=== PATIENT | female | born 1955 | race Two or more races ===

== ENCOUNTER 2025-01-21 23:39 | Inpatient (IN) | payer MEDICARE, MEDICAID, SELFPAY ==
[2025-01-21 23:43] VITALS: PULSE 128; RESP 20; O2SAT 95; BMI 25.2
[2025-01-21 23:48] VITALS: BP 111/63; PULSE 125; RESP 20; TEMP 40.3; O2SAT 95
--- NOTE | 2025-01-21 23:50 | PD.EDAMS ---
Altered Mental Status RME/HPI General Chief Complaint: Altered Mental Status Stated Complaint: AMS Time Seen by Provider: 01/21/25 23:56 Arrival date/time: 01/21/25 23:39 RME / HPI RME / HPI narrative: See MDM for HPI documentation. Related Data Home Medications ?Medication ?Instructions ?Recorded ?Confirmed albuterol sulfate 90 mcg/actuation 2 puff inhalation Q6HR PRN 04/06/17 01/22/25 aerosol inhaler (Proventil HFA) SHORTNESS OF BREATH #0 inhalations ferrous sulfate 325 mg (65 mg 325 mg PO TID ##0 04/06/17 01/22/25 iron) tablet hydroxyzine HCl 25 mg tablet 25 mg PO Q8HR PRN ANXIETY ##0 04/06/17 01/22/25 lisinopril 10 mg tablet 20 mg PO QDAY #0 tabs 04/06/17 01/22/25 chlorthalidone 25 mg tablet 25 mg PO QDAY #0 tabs 06/24/17 01/22/25 omeprazole 40 mg capsule,delayed 40 mg PO QDAY ##0 06/24/17 01/22/25 release cholecalciferol (vitamin D3) 50 50 mcg PO QDAY 01/22/25 01/22/25 mcg (2,000 unit) tablet Previous Rx's ?Medication ?Instructions ?Recorded albuterol sulfate 90 mcg/actuation 2 puff inhalation Q6HR PRN cough 04/06/17 aerosol inhaler (ProAir HFA) #1 inh Allergies Allergy/AdvReac Type Severity Reaction Status Date / Time No Known Allergies Allergy Unverified 01/23/25 11:45 Review of Systems Review of Systems ROS Unobtainable: unobtainable due to mental status Past Medical History Past Medical History CARDIAC: Negative Congestive Heart Failure RESPIRATORY: Negative Chronic Obstructive Pulmonary Disease (COPD) GENITOURINARY: Negative Renal Disease ENDOCRINE: Negative Diabetes Mellitus Type 1 or Diabetes Mellitus Type 2 OTHER HISTORY: Positive Blood Transfusions Social History SMOKING STATUS: Never smoker ED Exam Narrative Physical exam: See MDM for physical exam documentation. Course Course Course Narrative: 2350: Sepsis alert initiated. Orders made at this time are congruent with ED Adult Sepsis Order List. Re-evaluation is to be completed. CXR is ordered for determining the etiology of AMS. 0009: NS IVF started. 0201: Sepsis reassessment performed consisting of lab review, vitals, physical exam including auscultation of heart, lungs, and visual evaluation of capillary refills, mucosal membranes and extremities. Patient met SIRS criteria however lactic and pro carmen are elevated. Reassessment complete, patient is septic. Quality Measures Possible source: genitourinary Blood cultures ordered: yes Antibiotic ordered: Yes Pertinent labs: 01/21/25 01/22/25 23:59 03:56 Lactic Acid 3.7 H mMol/L 0.7 mMol/L (0.4-2.0) (0.4-2.0) Procalcitonin 9.53 H ng/ml (0.0-0.49) sepsis Orders Category Date Time Status Bedside COVID-19 Antigen Test NOW Care 01/21/25 23:53 Active Bedside Influenza A&B Antigen Test NOW Care 01/21/25 23:53 Completed COVID-19 Screening Questionnaire NOW Care 01/22/25 04:36 Active Decision to Admit X1 Care 01/22/25 04:36 Completed EKG (ED ONLY) *Do not use* NOW Care 01/21/25 23:54 Completed Barnes [Urinary Catheter] QS Care 01/22/25 00:01 Active Saline [Insert IV] NOW Care 01/21/25 23:53 Active Straight [In and Out Catheter] X1 Care 01/21/25 23:[address] chest wo con Stat Exams 01/22/25 02:[address] head/brain wo con Stat Exams 01/22/25 02:58 Completed EKG (ED Only) Stat Exams 01/21/25 23:54 Draft XR chest 1V portable Stat Exams 01/21/25 23:54 Completed BNP [B-Type Natriuretic Peptide] Stat Lab 01/21/25 23:59 Completed Bilirubin,Direct Stat Lab 01/21/25 23:59 Completed Blood Culture (Lab) Stat Lab 01/21/25 23:59 Results CBC Stat Lab 01/21/25 23:59 Completed CMP [Comprehensive Metabolic Panel] Stat Lab 01/21/25 23:59 Completed CRP [C-Reactive Protein] Stat Lab 01/21/25 23:59 Completed ESR [Sed Rate (ESR)] Stat Lab 01/21/25 23:59 Completed Free T4 (Free Thyroxine) Stat Lab 01/21/25 23:59 Completed Lactate (Lactic Acid) Stat Lab 01/21/25 23:59 Completed Lactic Acid, 3 HR Stat Lab 01/22/25 03:56 Completed Lipase Stat Lab 01/21/25 23:59 Completed Magnesium Stat Lab 01/21/25 23:59 Completed Procalcitonin Stat Lab 01/21/25 23:59 Completed RSV [Respiratory Syncytial Virus Ag] Stat Lab 01/21/25 23:59 Completed TSH [Thyroid Stimulating Hormone] Stat Lab 01/21/25 23:59 Completed Troponin I Stat Lab 01/21/25 23:59 Completed Troponin I Stat Lab 01/22/25 01:46 Completed UA, C/S IF [Urinalysis, C/S if Indicated] Stat Lab 01/21/25 23:57 Completed Urine Culture Stat Lab 01/21/25 23:57 Results Acetaminophen Ivpb [Ofirmev Inj] Med 01/21/25 23:53 Discontinued 1,000 mg in 100 ml IV X1 Aspirin Chew Med 01/22/25 01:26 Discontinued 324 mg PO X1 ONE Ketorolac Inj [Toradol Inj] Med 01/21/25 23:53 Discontinued 30 mg IVP X1 ONE Magnesium Sulfate 4 GM Ivpb [Magnesium Sulfate Ivpb] Med 01/22/25 01:37 Discontinued 4 gm in 50 ml IV X1 Metoprolol Tartrate [Lopressor] Med 01/22/25 01:26 Discontinued 12.5 mg PO X1 ONE Morphine Inj Med 01/21/25 23:53 Discontinued 2 mg IVP X1 ONE Sodium Chloride 0.9% 1000 ml [Ns] 1,000 ml Med 01/21/25 23:53 Discontinued IV 999 mls/hr Sodium Chloride 0.9% 1000 ml [Ns] 1,000 ml Med 01/21/25 23:53 Discontinued IV 999 mls/hr cefTRIAXone/D5w 1gm IV premix [Rocephin/D5w 1gm IV Med 01/21/25 23:53 Discontinued premix] 1 gm in 50 ml IV X1 Vital Signs Vital signs: Vital Signs Temperature 104.6 F H 01/21/25 23:48 Pulse Rate 125 H 01/21/25 23:48 Respiratory Rate 20 01/21/25 23:48 Blood Pressure 111/63 01/21/25 23:48 Pulse Oximetry (%) 95 01/21/25 23:48 Oxygen Delivery Method Room Air 01/21/25 23:48 Altered Mental Status MDM Narrative MDM Narrative:: This section includes all my notes and documentations, including HPI, PE, and ED course. Jim Jackson MD HPI: 70yo female BIBA from home here with AMS. Patient has been altered for a couple of hours. Family on scene described the patient being more confused and lethargic then normal. Patient is awake, but confused, and is unable to provide much history. ROS: Unobtainable due to to current clinical condition. Physical Exam: General: Alert. Eyes: Conjunctivae and lids clear. PERRL. EOMI. ENT: No nasal congestion. Neck: Supple. Heart: Sinus tachycardia noted. Lungs: No respiratory distress. Good air movement. No severe rhonchi, wheezing, rales. Abdomen: Soft and nontender. Normal bowel sounds. No distension. No rebound or guarding. Back: No CVA tenderness. Skin: Warm and dry. Neuro: Alert. Cranial nerves II to XII grossly normal. No peripheral motor deficits. I reviewed EMS notes. I reviewed all diagnostic test results. My interpretation of the EKG is sinus tachycardia with nonspecific ST-T changes. My interpretation of the chest x-ray is NAD. My review of the CT head report is NAD. My review of the chest CT report is pneumonia. Blood tests remarkable for Lactic Acid 3.7, Mg 1.0, Troponin 0.278, CRP 8.8, Procalcitonin 9.53. UA remarkable for positive leukocyte esterse, 106 RBCs, 863 WBCs, and bacteria. COVID/Influenza/RSV negative. At this point, diagnoses include: Sepsis UTI NSTEMI CELESTE AMS Pneumonia Hypomagnesemia Treatment here included Morphine, Metoprolol, Toradol, IV fluid, Rocephin, Tylenol, Aspirin, Magnesium. I discussed the case with our hospitalist. About the presentation and exam and diagnostics and treatments here. And need of further care in the hospital. Will accept the patient. Jim Jackson MD Patient data External records reviewed:: [facility] previous records (Per chart review, patient has no previous ED visits or admissions to this facility.) and EMS form Clinical information provided by:: EMS Social determinants that could affect healthcare access:: none Patient has the following chronic illnesses:: HTN, DM How is presenting disease/condition affected by chronic disease/condition?: uneffected by Evaluation data The following diagnostics were reviewed and interpreted by me:: lab results, radiology exam(s) and EKG tracing(s) (My interpretation of the EKG is: Sinus tachycardia (120 bpm) with nonspecific ST-T changes. Jim Jackson MD) Lab and/or radiology exams considered but not ordered:: none Interpretation Summary: I reviewed all diagnostic test results. My interpretation of the EKG is sinus tachycardia with nonspecific ST-T changes. My interpretation of the chest x-ray is NAD. My review of the CT head report is NAD. My review of the chest CT report is pneumonia. Blood tests remarkable for Lactic Acid 3.7, Mg 1.0, Troponin 0.278, CRP 8.8, Procalcitonin 9.53. UA remarkable for positive leukocyte esterse, 106 RBCs, 863 WBCs, and bacteria. COVID/Influenza/RSV negative. Medications / Prescriptions Medications or Prescriptions considered but not ordered:: none Medication administrations:: Medication Administration History Acetaminophen (Acetaminophen 325 Mg Tablet) 650 mg PO Q6H PRN PRN Reason: Fever >100.4 or pain 1-3 Stop: 02/21/25 04:49 Hydrocodone Bitart/Acetaminophen (Hydrocodone/Apap 5/325 Tablet) 1 tab PO Q4HR PRN PRN Reason: PAIN SCALE 4-10(Mod-Sev Stop: 01/27/25 04:49 Last Admin: 01/24/25 03:53 Dose: 1 tab Documented By: Admin: 01/23/25 20:28 Dose: 1 tab Documented By: Admin: 01/23/25 07:56 Dose: 1 tab Documented By: Admin: 01/22/25 21:30 Dose: 1 tab Documented By: Admin: 01/22/25 11:31 Dose: 1 tab Documented By: KAJAL Albuterol/Ipratropium (Albuterol/Ipratropium (Duoneb) Rt Ximena 3 Ml Nebu) 3 ml INH Q2HR PRN PRN Reason: SHORTNESS OF BREATH OR WHEEZE Stop: 02/22/25 11:42 Budesonide (Budesonide Rt 0.25 Mg/2 Ml Nebu) 0.25 mg INH BIDRT [place]AR[place] Stop: 02/22/25 11:44 Last Admin: 01/23/25 19:27 Dose: 0.25 mg Documented By: CHERELLE Docusate Sodium (Docusate Sod 100 Mg Capsule) 100 mg PO QDAY PRN; Protocol PRN Reason: CONSTIPATION Stop: 02/21/25 04:49 Ceftriaxone Sodium 2 gm/ (Sodium Chloride) 50 mls @ 100 mls/hr IV QDAY@2100 [place] Stop: 01/29/25 20:59 Last Admin: 01/23/25 20:28 Dose: 100 mls/hr Documented By: Infusion: 01/22/25 22:00 Dose: Infused Documented By: Admin: 01/22/25 21:30 Dose: 100 mls/hr Documented By: LUZ Ondansetron HCl (Ondansetron Inj 2 Mg/Ml Inj 2 Ml) 4 mg IVP Q6H PRN; Protocol PRN Reason: NAUSEA OR VOMITING Stop: 02/21/25 04:49 Pantoprazole Sodium (Pantoprazole 40 Mg Tablet) 40 mg PO QDAY [facility] Stop: 02/21/25 08:59 Last Admin: 01/23/25 07:57 Dose: 40 mg Documented By: Admin: 01/22/25 09:04 Dose: 40 mg Documented By: KAJAL Sennosides (Senna Tablet) 1 tab PO QDAY PRN; Protocol PRN Reason: constipation Stop: 02/21/25 04:49 Discontinued Medications Aspirin (Aspirin 81 Mg Chew) 324 mg PO X1 ONE Stop: 01/22/25 01:27 Last Admin: 01/22/25 01:40 Dose: 324 mg Documented By: RANDY Benzonatate (Benzonatate 100 Mg Capsule) 100 mg PO X1 ONE; Protocol Stop: 01/23/25 23:47 Last Admin: 01/23/25 23:51 Dose: 100 mg Documented By: SHAWNA Heparin Sodium (Porcine) (Heparin Sod Inj 5000 Unit/Ml Vial) 5,000 unit SC Q12HR [facility] Stop: 02/05/25 08:59 Last Admin: 01/22/25 09:02 Dose: Not Given Documented By: KAJAL Non-Admin Reason: Held per Dr. Acevedo Acetaminophen (Ofirmev Inj) 1,000 mg in 100 mls @ 250 mls/hr IV X1 ONE Stop: 01/22/25 00:16 Last Infusion: 01/22/25 00:42 Dose: Infused Documented By: Admin: 01/22/25 00:06 Dose: 250 mls/hr Documented By: RANDY Sodium Chloride (Ns) 1,000 mls @ 999 mls/hr IV .Q1H1M ONE Stop: 01/22/25 00:53 Last Infusion: 01/22/25 01:31 Dose: Infused Documented By: Admin: 01/22/25 00:10 Dose: 999 mls/hr Documented By: RANDY Ceftriaxone Sodium/Dextrose (Rocephin/D5w 1gm Iv Premix) 1 gm in 50 mls @ 100 mls/hr IV X1 ONE Stop: 01/22/25 00:22 Last Infusion: 01/22/25 00:40 Dose: Infused Documented By: Admin: 01/22/25 00:06 Dose: 100 mls/hr Documented By: RANDY Sodium Chloride (Ns) 1,000 mls @ 999 mls/hr IV .Q1H1M ONE Stop: 01/22/25 00:53 Last Infusion: 01/22/25 01:31 Dose: Infused Documented By: Admin: 01/22/25 00:09 Dose: 999 mls/hr Documented By: RANDY Magnesium Sulfate (Magnesium Sulfate Ivpb) 4 gm in 50 mls @ 12.5 mls/hr IV X1 ONE Stop: 01/22/25 05:36 Last Infusion: 01/22/25 06:05 Dose: Infused Documented By: Admin: 01/22/25 02:29 Dose: 12.5 mls/hr Documented By: RANDY Sodium Chloride (Ns) 1,000 mls @ 75 mls/hr IV .[id number] [place] Stop: 01/23/25 07:39 Last Admin: 01/22/25 21:30 Dose: 75 mls/hr Documented By: Infusion: 01/22/25 19:29 Dose: Infused Documented By: Admin: 01/22/25 06:09 Dose: 75 mls/hr Documented By: SHAWNA Ketorolac Tromethamine (Ketorolac Inj 30 Mg/Ml Vial) 30 mg IVP X1 ONE Stop: 01/21/25 23:54 Last Admin: 01/22/25 00:06 Dose: 30 mg Documented By: RANDY Metoprolol Tartrate (Metoprolol Tartrate 25 Mg Tablet) 12.5 mg PO X1 ONE Stop: 01/22/25 01:27 Last Admin: 01/22/25 01:37 Dose: 12.5 mg Documented By: CB Morphine Sulfate (Morphine Sulf Inj 10 Mg/Ml Vial) 2 mg IVP X1 ONE Stop: 01/21/25 23:54 Last Admin: 01/22/25 00:07 Dose: 2 mg Documented By: RANDY Potassium Chloride (Potassium Chloride 10% 20 Meq/15 Ml Udc) 40 meq PO X1 ONE Stop: 01/23/25 08:31 Last Admin: 01/23/25 11:04 Dose: 40 meq Documented By: FAVIOLA Treatment from me here included morphine, Metoprolol, Toradol, IV fluid, Rocephin, Tylenol, Aspirin, Magnesium. Consultations Consultation(s) initiated? (list below): Yes Consultation #1 (Physician, Specialty, Details): I discussed the case with our hospitalist. About the presentation and exam and diagnostics and treatments here. And need of further care in the hospital. Will accept the patient. Time: 02:26 Diagnosis Differential diagnosis altered mental status: alcoholic intoxication, altered mental status, delirium, dementia, hypoglycemia, hyponatremia, subarachnoid hemorrhage and sepsis Most likely diagnosis given after review of the tests above:: At this point, diagnoses include: Sepsis UTI NSTEMI CELESTE AMS Pneumonia Hypomagnesemia Admission Indicated Admission indicated?: indicated Explain why admission is indicated or not indicated:: Sepsis Admission Request Was there a request for admission?: Yes Admission Attestation Admission request attestation: Discussed case with Hospitalist service regarding admission. Discussed patients ED course, exam findings, labs, and radiology results. The Hospitalist [agrees] to accept the patient for admission. Disposition Plan Disposition Plan: Admit Critical Care Time Critical Care Time Critical Care Time: Yes Total Critical Care Time (min.): 40 Attestation: Due to a high probability of clinically significant, life threatening deterioration, the patient required my highest level of preparedness to intervene emergently and I personally spent this critical care time directly and personally managing the patient. This critical care time included obtaining a history; examining the patient; ordering and review of studies; arranging urgent treatment with development of a management plan; evaluation of patient's response to treatment; frequent reassessment; and discussions with family and other providers. It was exclusive of separately billable procedures and treating other patients and teaching time. Jim Jackson MD Discharge Plan Plan Patient Disposition: Admit Acute Care w/in Hospital Problem List Clinical Impression: Sepsis, AMS (altered mental status), UTI (urinary tract infection), Non-ST elevation [place] (NSTEMI), CELESTE (acute kidney injury), Pneumonia, Hypomagnesemia
--- NOTE | 2025-01-21 23:54 | XR_ITS ---
Examination: AP chest single view Technique one AP portable semiupright chest single view Date and time: January 22, 2025 0010 hours INDICATIONS: Coughing and fever today. FINDINGS: Normal heart size. Mild elevation left hemidiaphragm. No pneumonia or pulmonary edema Prominent osteopenia IMPRESSION: No active disease
--- NOTE | 2025-01-21 23:54 | EKG_ITS ---
[facility] Test Date: 2025-01-21 Pat Name: DEMETRI ARROYO Department: Room: - Gender: Female Terminal Clerk: : 1955 Requested By: Jim Costello Order Number: [id number] Reading MD: Jim Costello Measurements Intervals Elim Rate: 120 P: -23 [place]: 146 QRS: -52 QRSD: 92 T: 57 QT: 382 QTc: 542 Interpretive Statements SINUS TACHYCARDIA LOW QRS VOLTAGE IN PRECORDIAL LEADS [QRS DEFLECTION < 1.0 mV IN CHEST LEADS] LEFT ANTERIOR FASCICULAR BLOCK [QRS AXIS <= -45, QR IN I, RS IN II] No previous ECG available for comparison /store/S0/[id number]/ecg/[id number].pdf
[2025-01-22] VITALS (14 sets, daily range): BP systolic 92–127; BP diastolic 52–71; PULSE 64–108; RESP 16–19; TEMP 36.2–40.3; O2SAT 92–96; BMI 27.1; BMI 11.0
[2025-01-22 00:05] LABS: Collection Type, Urine Clean Catch; Squamous Epithelial Cell,Urine 0 /hpf (0-5)
[2025-01-22] MEDS: KETOROLAC INJ 30 MG/ML VIAL IVP (00:06)
[2025-01-22] MEDS: cefTRIAXone/D5w 1gm IV premix 1 GM/50 ML BAG IV (00:06)
[2025-01-22] MEDS: ACETAMINOPHEN IVPB 1,000 MG/100 ML VIAL 250 MG IV (00:06)
[2025-01-22] MEDS: MORPHINE SULF INJ 10 MG/ML VIAL 2 MG IVP (00:07)
[2025-01-22] MEDS: SODIUM CHLORIDE 0.9% 1000 ML 1,000 ML 999 ML IV ×2 (00:09→00:10)
[2025-01-22 00:17] LABS: Bacteria,Urine Rare; Bilirubin,Urine Negative (Negative); Blood,Urine 3+ (Negative); Clarity,Urine Turbid (Clear/Hazy); Color,Urine Yellow (Lt Yel-Yel); Culture Indicated,Urine Yes; Glucose, Urine Negative (Negative); Hyaline Casts,Urine < 1 /hpf (0-1); Ketones,Urine Negative (Negative); Leukocyte Esterase,Urine Positive (Negative); Nitrite,Urine Negative (Negative); PH,Urine 6.0 (5.0-7.0); Protein,Urine 2+ (Neg - Trace); RBC,Urine 106 /hpf (0-3); Specific Gravity,Urine 1.023 (1.001-1.035); Urobilinogen,Urine Negative mg/dL (0.0-1.0); WBC,Urine 863 /hpf (0-5)
[2025-01-22 00:27] LABS: Lactate (Lactic Acid) 3.7 mMol/L (0.4-2.0)
[2025-01-22 00:30] LABS: Basophils # (Auto) 0.0 Thou/mm3 (0.0-0.2); Basophils % (Auto) 0 % (0-2.5); Eosinophils # (Auto) 0.0 Thou/mm3 (0.0-0.5); Eosinophils % (Auto) 0 % (0-10); Hematocrit 27.7 % (36.0-46.0); Hemoglobin 8.4 g/dL (12.0-16.0); Immature Granulocytes Auto 0.02 Thou/mm3 (0.00-0.00); Lymphocytes # (Auto) 0.4 Thou/mm3 (1.0-4.8); Lymphocytes % (Auto) 6 % (10-50); Mean Corpuscular HGB Conc 30.3 g/dl (31.0-37.0); Mean Corpuscular Hemoglobin 23.0 pg (25.0-35.0); Mean Corpuscular Volume 76 fL (80-100); Monocytes # (Auto) 0.2 Thou/mm3 (0.0-0.8); Monocytes % (Auto) 3 % (0-12); Neutrophils # (Auto) 5.5 Thou/mm3 (1.8-7.7); Neutrophils % (Auto) 90 % (37-80); Nucleated Red Blood Cell # 0.00 Thou/mm3 (0.00-0.00); Nucleated Red Blood Cell % 0 /100 WBC (0); Platelet Count 203 Thou/mm3 (140-440); RDW Standard Deviation 52.4 fL (36.4-46.3); Red Blood Count 3.65 Miln/mm3 (4.00-5.20); White Blood Count 6.1 Thou/mm3 (3.6-11.0)
[2025-01-22 00:42] LABS: Sed Rate (ESR) 34 mm/hr (0-30)
[2025-01-22 00:44] LABS: Respiratory Syncytial Virus Ag Negative (Negative)
[2025-01-22 01:00] LABS: B-Type Natriuretic Peptide 165 pg/mL (0-100)
[2025-01-22 01:12] LABS: Alanine Aminotransferase 10 U/L (10-49); Albumin, Serum 3.8 gm/dL (3.4-4.8); Albumin/Globulin Ratio 1.6 (1.2-2.2); Alkaline Phosphatase 84 U/L (46-116); Anion Gap 14 (7-16); Aspartate Amino Transferase 24 U/L (0-34); BUN/Creatinine Ratio 8 Ratio (12-20); Bilirubin,Direct 0.2 mg/dL (0.0-0.3); Bilirubin,Total 0.7 mg/dL (0.3-1.2); Blood Urea Nitrogen 10 mg/dL (9-23); C-Reactive Protein 8.8 mg/dL (0.0-0.9); Calcium 9.3 mg/dL (8.3-10.6); Calcium (Corrected) 9.5 mg/dL (8.5-10.1); Carbon Dioxide 21.8 mMol/L (20.0-31.0); Chloride 96 mMol/L (98-107); Creatinine (Component) 1.2 mg/dL (0.6-1.3); Estimated Creatinine Clearance 42.0 mL/min (>60); Free T4 (Free Thyroxine) 1.31 ng/dL (0.89-1.76); Globulin 2.4 gm/dL (2.3-3.5); Glucose 111 mg/dL (74-106); Lipase 17 U/L (12-53); Magnesium 1.0 mg/dL (1.6-2.6); Osmolality,Calculated 264 (275-295); Potassium 3.4 mMol/L (3.4-5.1); Procalcitonin 9.53 ng/ml (0.0-0.49); Sodium 132 mMol/L (136-145); Thyroid Stimulating Hormone 1.18 uIU/mL (0.55-4.78); Total Protein 6.2 gm/dL (5.7-8.2); eGFR 49 See Note
[2025-01-22 01:14] LABS: Troponin I 0.278 ng/mL (0.0-0.045)
[2025-01-22] MEDS: METOPROLOL TARTRATE 25 MG TABLET 12.5 MG PO (01:37)
[2025-01-22] MEDS: ASPIRIN 81 MG CHEW 324 MG PO (01:40)
[2025-01-22 02:23] LABS: Troponin I 0.342 ng/mL (0.0-0.045)
[2025-01-22] MEDS: Magnesium Sulfate 4 GM Ivpb 4 GM/50 ML BAG IV (02:29)
--- NOTE | 2025-01-22 02:58 | XR_ITS ---
Examination: CT brain head without contrast. 2-D sagittal coronal reconstructions Date and time of exam:January 22, 2025, 0339 hours INDICATIONS: Altered mental status today. CTDI: vol (mGy):43.28. DLP: (mGycm):823. Technique: Multiple CT axial sections of the brain have been obtained, 5 mm slice thickness. Contrast has not been administered. 2-D sagittal, coronal reconstructions have been obtained Low dose protocols were performed. One or more of the following dose reduction techniques were used; automated exposure control, adjustment of the mA and/or KV according to patient size, use of iterative reconstruction technique. Findings: No significant ventricular enlargement. Intra-axial or extra-axial hemorrhage density is not seen. No mass effect or midline shift Basal cisterns are not remarkable. Fourth ventricle is midline. Cranial vault intact. Retention cyst in the left maxillary antrum. Impression: Negative for acute hemorrhage, mass effect or midline shift Advise clinical correlation and follow up accordingly
--- NOTE | 2025-01-22 02:58 | XR_ITS ---
Examination: CT chest, without intravenous contrast. Sagittal and coronal 2-D reconstructions. Exam date and time: January 22, 2025, 0340 hours, comparison April 19, 2017 INDICATIONS: Difficulty breathing today, sepsis alert. CTDI:vol (mGy) 12.91. DLP: (mGycm) 440. Technique: Multiple 3.0 mm axial sections of the chest to been obtained. Bone and lung density settings are obtained. Sagittal and coronal 2-D reconstructions have been obtained. Low dose protocols were performed. One or more of the following dose reduction techniques were used; automated exposure control, adjustment of the mA and/or KV according to patient size, use of iterative reconstruction technique. Findings: No thoracic aortic aneurysm dilatation Pulmonary artery segments are not enlarged. No paratracheal tracheobronchial or bronchopulmonary adenopathy. COPD with areas of airspace destruction. Pneumonia left base with minimal left pleural disease Liver appears mildly irregular in contour Absent gallbladder No pancreatic mass Small retrocardiac gastric hernia Left perinephric stranding Moderate osteopenia IMPRESSION: Pneumonia left base with minimal left pleural disease Left perinephric stranding, recommend renal sonography follow-up
[2025-01-22 03:23] LABS: Reflex Lactate? Y
[2025-01-22 04:03] LABS: Lactic Acid, 3 HR 0.7 mMol/L (0.4-2.0)
--- NOTE | 2025-01-22 04:31 | PRELIM_ITS ---
CT scan of the head without intravenous contrast (axial sections with sagittal and coronal reformats) January 22, 2025 0339 hours Clinical history: AMS Comparison: No prior study is available for comparison. Findings: There is no evidence of intracranial hemorrhage, mass effect or midline shift. There are periventricular white matter hypodensities, compatible with chronic small vessel ischemia. No definitive wedge shaped acute infarcts are detected. Please note that subtle early infarcts are better assessed using diffusion weighted MR imaging if clinically indicated. There is mild volume loss. The calvarium is unremarkable. There are retention cysts or polyps in the bilateral maxillary sinuses. The mastoid air cells and the other visualized paranasal sinuses are clear. Degenerative changes are noted in bilateral temporomandibular joints. Impression: No evidence of intracranial hemorrhage, mass effect or midline shift. If there are persistent clinical symptoms or additional clinical concerns consider an MRI. Periventricular chronic small vessel ischemia and volume loss. Report Electronically Signed By: Vinod Devi 01/22/2025 4:31:14 AM [EST]
--- NOTE | 2025-01-22 04:36 | PRELIM_ITS ---
CT scan of the chest without intravenous contrast (axial sections with sagittal and coronal reformats) January 22, 2025 at 0340 hours Clinical History: Sepsis and decreased air movement. Comparison: No prior study is available for comparison. Findings: Bibasilar streaky atelectasis is present. There is peribronchial soft tissue thickening in bilateral lungs, consistent with chronic airways disease. There is small loculated left pleural effusion adjacent to the left dome of the diaphragm with adjacent patchy airspace consolidation in the left lower lobe (sagittal image 67/177). No evidence of pneumothorax. The mediastinum demonstrates no evidence of mass or lymphadenopathy. The thoracic aorta demonstrates atheromatous calcification without evidence of aneurysm. There is no pericardial effusion. The bones are osteopenic. Degenerative changes are identified in the spine. There is small hiatal hernia with wall thickening of the lower thoracic esophagus, which may be due to reflux esophagitis or due to other inflammatory pathology. The gallbladder is surgically absent. The other visualized upper abdominal viscera are unremarkable on this noncontrast study. Please note that evaluation of soft tissue/vascular structures is limited due to absence of IV contrast. Impression: 1. No evidence of segmental lung consolidation or pleural effusion. 2. Peribronchial soft tissue thickening in bilateral lungs, consistent with chronic airways disease. 3. Small loculated left pleural effusion adjacent to the left dome of the diaphragm with adjacent patchy airspace consolidation in the left lower lobe. 4. Small hiatal hernia with wall thickening of the lower thoracic esophagus, which may be due to reflux esophagitis or due to other inflammatory pathology. 5. Other findings as described above. Suggest clinical correlation and follow up accordingly. Report Electronically Signed By: Vinod Devi 01/22/2025 4:36:15 AM [EST]
--- NOTE | 2025-01-22 05:25 | PD.RESHP ---
Documentation for date of: 01/22/25 HPI History of Present Illness Chief complaint: Weakness, confusion History of present illness: 70 y/o F with PMHx significant for hypertension, GERD presents to ED with chief complaint of weakness and confusion per family. At time of exam patient was A&O x 4, able provide history. Patient reports she was having episodes of weakness today, requiring increased use of her walker and assistance from family to move around her house. She does not recall any episodes of confusion but does report feeling extremely anxious regarding her weakness. Patient also reports dysuria present for 1 week. She notes that due to hip replacement several years ago, she frequently has pain in left and right hip depending on which when she has favored recently. Patient denies fever, chills, chest pain, shortness of breath, nausea, vomiting. ED COURSE: Labs significant for: WBC 6.1, hemoglobin 8.4, creatinine 1.2 (baseline 0.9), lactic acid 3.7, CRP 8.8, ESR 34, troponin 0.278 up trended to 0.342, Pro-Braulio 9.53. Urinalysis shows 106 RBCs, 863 WBCs, rare bacteria. Imaging significant for: EKG showing sinus tachycardia. Chest x-ray unremarkable. Head CT negative. In the ED patient noted to have fever 104.6, tachycardia. Received 2 L bolus normal saline, 1 g Tylenol IV, aspirin 324, Toprol tartrate 12.5, and Rocephin. PMH: Hypertension, GERD PSH: Left hip replacement. Cholecystectomy. SH: Denies tobacco, illicit drug use. Reports approximately 3 drinks per week. Allergies:?NKDA Medications: Omeprazole, lisinopril Review of Systems Review of Systems Systems Reviewed: All systems reviewed, normal except as documented Past Medical History Past Medical History Comments PMH COMMENT: PMH: Hypertension, GERD PSH: Left hip replacement. Cholecystectomy. SH: Denies tobacco, illicit drug use. Reports approximately 3 drinks per week. Allergies:?NKDA Medications: Omeprazole, lisinopril Exam Vital Signs Temp Pulse Resp BP Pulse Ox O2 Del Method 99.1 F 73 19 92/56 L 95 Room Air 01/22/25 04:12 01/22/25 04:12 01/22/25 04:12 01/22/25 04:12 01/22/25 04:12 01/22/25 04:12 Narrative Exam PE: Gen: Well-developed and well-nourished. HEENT: NCAT, PERRLA, EOMI, anicteric conjunctivae. Dry mucous membranes. Horizontal nystagmus. CVS: normal S1 and S2. RRR. No M/R/G. Resp: CTA B/L. No rhonchi, rales, crackles or wheezing. Abd: soft, non-tender, non-distended. MSK: Good ROM in BUE. No edema or rash. Bilateral lower extremity movement limited by pain. Neuro: CN II-XII grossly intact. Strength 5/5 in BUE & BLE. Alert and oriented x3. Psych: appropriate mood and affect. Results: Labs 01/22/25 05:27 01/22/25 05:27 Labs: Short CBC 01/21/25 Range/Units 23:59 WBC 6.1 (3.6-11.0) Thou/mm3 Hgb 8.4 L (12.0-16.0) g/dL Hct 27.7 L (36.0-46.0) % Plt Count 203 (140-440) Thou/mm3 BMP 01/21/25 23:59 Sodium 132 L Potassium 3.4 Chloride 96 L Carbon Dioxide 21.8 BUN 10 Creatinine 1.2 Glucose 111 H Calcium 9.3 Cardiac Enzymes 01/21/25 01/22/25 Range/Units 23:59 01:46 Troponin I 0.278 H* 0.342 H* (0.0-0.045) ng/mL Liver Function 01/21/25 Range/Units 23:59 Total Bilirubin 0.7 (0.3-1.2) mg/dL Direct Bilirubin 0.2 (0.0-0.3) mg/dL AST 24 (0-34) U/L ALT 10 (10-49) U/L Alkaline Phosphatase 84 (46-116) U/L Albumin 3.8 (3.4-4.8) gm/dL Urine 01/21/25 Range/Units 23:57 Urine Color Yellow (Lt Yel-Yel) Urine Clarity Turbid A (Clear/Hazy) Urine pH 6.0 (5.0-7.0) Ur Specific Brush 1.023 (1.001-1.035) Urine Protein 2+ A (Neg - Trace) Urine Glucose (UA) Negative (Negative) Quality Measures Quality Measures sepsis Current suspected stage: sepsis Possible source: genitourinary Blood cultures ordered: yes Antibiotic ordered: Yes Advance care planning discussed with:: patient Medications Home Medications and Allergies Home Medications ?Medication ?Instructions ?Recorded ?Confirmed ?Type albuterol sulfate 90 mcg/actuation 2 puff inhalation Q6HR PRN 04/06/17 01/22/25 History aerosol inhaler (Proventil HFA) SHORTNESS OF BREATH #0 inhalations ferrous sulfate 325 mg (65 mg 325 mg PO TID ##0 04/06/17 01/22/25 History iron) tablet hydroxyzine HCl 25 mg tablet 25 mg PO Q8HR PRN ANXIETY ##0 04/06/17 01/22/25 History lisinopril 10 mg tablet 20 mg PO QDAY #0 tabs 04/06/17 01/22/25 History chlorthalidone 25 mg tablet 25 mg PO QDAY #0 tabs 06/24/17 01/22/25 History omeprazole 40 mg capsule,delayed 40 mg PO QDAY ##0 06/24/17 01/22/25 History release cholecalciferol (vitamin D3) 50 50 mcg PO QDAY 01/22/25 01/22/25 History mcg (2,000 unit) tablet Allergies Allergy/AdvReac Type Severity Reaction Status Date / Time NKA* Allergy Uncoded 01/21/25 23:43 Visit Medications Acetaminophen (Acetaminophen 325 Mg Tablet) 650 mg PO Q6H PRN PRN Reason: Fever >100.4 or pain 1-3 Stop: 02/21/25 04:49 Hydrocodone Bitart/Acetaminophen (Hydrocodone/Apap 5/325 Tablet) 1 tab PO Q4HR PRN PRN Reason: PAIN SCALE 4-10(Mod-Sev Stop: 01/27/25 04:49 Docusate Sodium (Docusate Sod 100 Mg Capsule) 100 mg PO QDAY PRN; Protocol PRN Reason: CONSTIPATION Stop: 02/21/25 04:49 Heparin Sodium (Porcine) (Heparin Sod Inj 5000 Unit/Ml Vial) 5,000 unit SC Q12HR [facility] Stop: 02/05/25 08:59 Magnesium Sulfate (Magnesium Sulfate Ivpb) 4 gm in 50 mls @ 12.5 mls/hr IV X1 ONE Stop: 01/22/25 05:36 Last Admin: 01/22/25 02:29 Dose: 12.5 mls/hr Sodium Chloride (Ns) 1,000 mls @ 75 mls/hr IV .[id number] [facility] Stop: 01/23/25 07:39 Ceftriaxone Sodium 2 gm/ (Sodium Chloride) 50 mls @ 100 mls/hr IV QDAY@2100 [place] Stop: 01/29/25 20:59 Ondansetron HCl (Ondansetron Inj 2 Mg/Ml Inj 2 Ml) 4 mg IVP Q6H PRN; Protocol PRN Reason: NAUSEA OR VOMITING Stop: 02/21/25 04:49 Pantoprazole Sodium (Pantoprazole 40 Mg Tablet) 40 mg PO QDAY [facility] Stop: 02/21/25 08:59 Sennosides (Senna Tablet) 1 tab PO QDAY PRN; Protocol PRN Reason: constipation Stop: 02/21/25 04:49 Discontinued Medications Aspirin (Aspirin 81 Mg Chew) 324 mg PO X1 ONE Stop: 01/22/25 01:27 Last Admin: 01/22/25 01:40 Dose: 324 mg Acetaminophen (Ofirmev Inj) 1,000 mg in 100 mls @ 250 mls/hr IV X1 ONE Stop: 01/22/25 00:16 Last Infusion: 01/22/25 00:42 Dose: Infused Sodium Chloride (Ns) 1,000 mls @ 999 mls/hr IV .Q1H1M ONE Stop: 01/22/25 00:53 Last Infusion: 01/22/25 01:31 Dose: Infused Ceftriaxone Sodium/Dextrose (Rocephin/D5w 1gm Iv Premix) 1 gm in 50 mls @ 100 mls/hr IV X1 ONE Stop: 01/22/25 00:22 Last Infusion: 01/22/25 00:40 Dose: Infused Sodium Chloride (Ns) 1,000 mls @ 999 mls/hr IV .Q1H1M ONE Stop: 01/22/25 00:53 Last Infusion: 01/22/25 01:31 Dose: Infused Ketorolac Tromethamine (Ketorolac Inj 30 Mg/Ml Vial) 30 mg IVP X1 ONE Stop: 01/21/25 23:54 Last Admin: 01/22/25 00:06 Dose: 30 mg Metoprolol Tartrate (Metoprolol Tartrate 25 Mg Tablet) 12.5 mg PO X1 ONE Stop: 01/22/25 01:27 Last Admin: 01/22/25 01:37 Dose: 12.5 mg Morphine Sulfate (Morphine Sulf Inj 10 Mg/Ml Vial) 2 mg IVP X1 ONE Stop: 01/21/25 23:54 Last Admin: 01/22/25 00:07 Dose: 2 mg Assessment & Plan Plan 70 y/o F with PMHx significant for hypertension, GERD presents to ED with chief complaint of weakness and confusion per family, admitted for sepsis secondary to UTI. #Sepsis secondary to #UTI Patient presented with chief complaint of weakness and confusion per family. Exam. He was A&O x 4, reportedly experienced weakness requiring assistance from family at home. Patient also notes dysuria for past week. Denies fevers, chills, chest pain, shortness of breath. On presentation to ED patient had fever 104.6, resolved with 1 g IV Tylenol. Urinalysis shows 106 RBCs, 863 WBCs, rare bacteria. Blood and urine cultures drawn. Patient received 2 L bolus normal saline in the ED. Lactate 3.7 down trended to 0.7. Pro-Braulio 9.53. Sofa score 2. - Ceftriaxone 2 g IV daily (started 01/21) - IVF: Normal saline at 75 mL/h x 2 L - Blood and urine cultures pending, follow-up - PT referral #NSTEMI type I versus type II Patient has elevated troponin 0.278 up trended to 0.342. Patient denies chest pain, shortness of breath. EKG benign. Most likely demand ischemia in setting of sepsis. - Trend troponin - Telemonitoring - Defer cardiology consult to day team as warranted. #CELESTE versus CKD Patient presenting with BUN 10, creatinine 1.2, EGFR 49. Baseline creatinine 0.9 on previous labs, however were several years out of date. Possible CELESTE secondary to sepsis, patient was dehydrated on presentation. - IVF as above - Monitor daily labs - Avoid nephrotoxins - Renally dose as needed - Hold MARIAH inhibitors #Microcytic anemia On admission Hgb 8.4, dropped to 7 after 2L of ivf Last Hgb prior to admission on 06/2017 was normal Denies any bleeding, hematemesis/melena/hematochezia or hemoptysis Hematuria noted on UA, possibly in setting of UTI F/U iron panel. Ferritin Likely elevated. #HTN Patient history as stated. Blood pressure low to normal in ED. Med rec's pending. - Consider resuming home meds when appropriate DVT prophylaxis: Heparin GI prophylaxis: Protonix Diet: Low-sodium Lines: Peripheral IV, Barnes cath Code status: Full code Plan of care discussed with attending Dr. Robbi Spears MD PGY?2 Attending Provider Attestation/Addendum After examination of the patient and review of the clinical data I feel that this patient needs admission to the hospital for further treatment/evaluation. I Karuna Culp MD, attest that I was physically present for fang portions of evaluation, and examined patient, labs and imagings and plan of care were discussed with IM residents team, and I agree with the findings and plans documented above.
[2025-01-22 05:34] LABS: Basophils # (Auto) 0.0 Thou/mm3 (0.0-0.2); Basophils % (Auto) 0 % (0-2.5); Eosinophils # (Auto) 0.0 Thou/mm3 (0.0-0.5); Eosinophils % (Auto) 0 % (0-10); Hematocrit 23.1 % (36.0-46.0); Immature Granulocytes Auto 0.03 Thou/mm3 (0.00-0.00); Lymphocytes # (Auto) 0.3 Thou/mm3 (1.0-4.8); Lymphocytes % (Auto) 5 % (10-50); Mean Corpuscular HGB Conc 30.3 g/dl (31.0-37.0); Mean Corpuscular Hemoglobin 23.0 pg (25.0-35.0); Mean Corpuscular Volume 76 fL (80-100); Monocytes # (Auto) 0.8 Thou/mm3 (0.0-0.8); Monocytes % (Auto) 12 % (0-12); Neutrophils # (Auto) 5.3 Thou/mm3 (1.8-7.7); Neutrophils % (Auto) 81 % (37-80); Nucleated Red Blood Cell # 0.00 Thou/mm3 (0.00-0.00); Nucleated Red Blood Cell % 0 /100 WBC (0); Platelet Count 177 Thou/mm3 (140-440); RDW Standard Deviation 52.3 fL (36.4-46.3); Red Blood Count 3.04 Miln/mm3 (4.00-5.20); White Blood Count 6.5 Thou/mm3 (3.6-11.0)
[2025-01-22 05:59] LABS: Alanine Aminotransferase 14 U/L (10-49); Albumin, Serum 3.1 gm/dL (3.4-4.8); Albumin/Globulin Ratio 1.6 (1.2-2.2); Alkaline Phosphatase 68 U/L (46-116); Anion Gap 9 (7-16); Aspartate Amino Transferase 50 U/L (0-34); BUN/Creatinine Ratio 10 Ratio (12-20); Bilirubin,Total 0.3 mg/dL (0.3-1.2); Blood Urea Nitrogen 12 mg/dL (9-23); Calcium 8.1 mg/dL (8.3-10.6); Calcium (Corrected) 8.8 mg/dL (8.5-10.1); Carbon Dioxide 25.1 mMol/L (20.0-31.0); Chloride 100 mMol/L (98-107); Creatinine (Component) 1.2 mg/dL (0.6-1.3); Estimated Creatinine Clearance 42.0 mL/min (>60); Globulin 2.0 gm/dL (2.3-3.5); Glucose 134 mg/dL (74-106); Hemoglobin 7.0 g/dL (12.0-16.0); Magnesium 2.5 mg/dL (1.6-2.6); Osmolality,Calculated 269 (275-295); Potassium 3.4 mMol/L (3.4-5.1); Sodium 134 mMol/L (136-145); Total Protein 5.1 gm/dL (5.7-8.2); eGFR 49 See Note
[2025-01-22 06:01] LABS: Troponin I 0.382 ng/mL (0.0-0.045)
[2025-01-22] MEDS: SODIUM CHLORIDE 0.9% 1000 ML 1,000 ML 75 ML IV ×2 (06:09→21:30)
[2025-01-22 07:23] LABS: Iron 28 mcg/dL (50-170); Percent Iron Saturation 10 % (20-55); Total Iron Binding Capacity 266 mcg/dL (250-425); Unsaturated Iron Binding 238 (225-295)
--- NOTE | 2025-01-22 09:01 | PC.NURSE ---
Pt will be receiving blood transfusion. Called Dr. Acevedo to inquire about patient's schedule Heparin. said to hold heparin
[2025-01-22] MEDS: PANTOPRAZOLE 40 MG TABLET PO (09:04)
--- NOTE | 2025-01-22 09:41 | PC.SS ---
CHERRY GROWER met with patient at bedside, role and reason explained. Patient confirmed demographic information and stated that she lives at home with her three adult children. Patient stated that her decision maker is Joseobed Anderson her son. Patient does not know his number but stated that SS can contact her sisters in case of emergency or her other son Sree Anderson. Patient stated that she is not employed, she uses a walker to ambulate, her PCP is Dr. Gardner in [place], and her last appointment was 01/15/25. Patient stated that once she is medically clear she would like to return home and her family will provide transportation. PCP: Dr. Gardner D/c: home Decision maker: Jose Anderson, ph: [phone]
--- NOTE | 2025-01-22 11:15 | XR_ITS ---
Examination: Retroperitoneal ultrasound, complete Technique: Multiple high resolution grayscale images of the retroperitoneum obtained, including kidneys and bladder. Exam date and time:January 22, 2025 1209 hours INDICATIONS: Recurrent urinary tract infection history with painful urination, months FINDINGS: Right kidney 9.5 cm cortex 1.0 cm Left kidney 8.6 cm renal cortex 1.6 cm Mild bilateral renal parenchymal scar formation. No hydronephrosis Bladder contracted around a Barnes catheter IMPRESSION: Small kidneys with bilateral renal cortical thinning No hydronephrosis
[2025-01-22] MEDS: HYDROcodone/APAP 5/325 TABLET 1 TAB PO ×2 (11:31→21:30)
[2025-01-22 12:33] LABS: Troponin I 0.349 ng/mL (0.0-0.045)
--- NOTE | 2025-01-22 13:28 | ESPR_ITS ---
<Statement entered by Valerie Jarrell MD - 01/22/25 21:14> Patient was seen and examined at bedside. Pending urine culture and sensitivity, also pending blood culture and sensitivity then patient can be switched to oral antibiotics and can be discharged. - Patient's plan and care discussed with my attending, Dr. Abdi Jarrell MD Internal Medicine PGY-3 Documentation for date of: 01/22/25 Subjective Subjective Interval history: Patient examined bedside AOx4. States she does not recall any confusion but that she was weak at home and required her walker which she only normally uses outside. She has anxiety and painful urination the last week. Her last BM was 1 day ago without hematochezia. She denies dizziness or confusion and denies coughing up blood. Her hips continue bothering her and it makes her sad. Exam Vital Signs Temp Pulse Resp BP Pulse Ox O2 Del Method 98.1 F 83 19 119/61 92 L Room Air 01/22/25 13:26 01/22/25 13:26 01/22/25 13:26 01/22/25 13:26 01/22/25 13:26 01/22/25 12:00 Narrative Exam Gen: Well-developed and well-nourished. HEENT: NCAT, PERRLA, EOMI, anicteric conjunctivae. Dry mucous membranes. Horizontal nystagmus. CVS: normal S1 and S2. RRR. No M/R/G. Resp: CTA B/L. No rhonchi, rales, crackles or wheezing. Abd: soft, non-tender, non-distended. MSK: Good ROM in BUE. No edema or rash. Bilateral lower extremity movement limited by pain. Neuro: CN II-XII grossly intact. Strength 5/5 in BUE & BLE. Alert and oriented x3. Psych: appropriate mood and affect. Uro: Unable to assess back for CVA tenderness due to limited ability due to hip pain Objective Labs 01/23/25 05:10 01/23/25 05:10 Labs: Laboratory Results - last 24 hr 01/21/25 01/21/25 01/22/25 23:57 23:59 01:46 WBC 6.1 RBC 3.65 L Hgb 8.4 L Hct 27.7 L MCV 76 L MCH 23.0 L MCHC 30.3 L RDW Std Deviation 52.4 H Plt Count 203 Neut % (Auto) 90 H Lymph % (Auto) 6 L [place] % (Auto) 3 Eos % (Auto) 0 Baso % (Auto) 0 Neut # (Auto) 5.5 Lymph # (Auto) 0.4 L [place] # (Auto) 0.2 Eos # (Auto) 0.0 Baso # (Auto) 0.0 Immature Gran # (Auto) 0.02 H Absolute Nucleated RBC 0.00 Immature Gran % 0 Nucleated RBC % 0 ESR 34 H Sodium 132 L Potassium 3.4 Chloride 96 L Carbon Dioxide 21.8 Anion Gap 14 BUN 10 Creatinine 1.2 Estim Creat Clear Calc 42.0 L eGFR 49 L BUN/Creatinine Ratio 8 L Glucose 111 H Calculated Osmolality 264 L Lactic Acid 3.7 H Calcium 9.3 Corrected Calcium 9.5 Magnesium 1.0 L Iron TIBC Iron Saturation Unsat Iron Binding Total Bilirubin 0.7 Direct Bilirubin 0.2 AST 24 ALT 10 Alkaline Phosphatase 84 Troponin I 0.278 H* 0.342 H* C-Reactive Prot, Quant 8.8 H B-Natriuretic Peptide 165 H Total Protein 6.2 Albumin 3.8 Globulin 2.4 Albumin/Globulin Ratio 1.6 Lipase 17 Procalcitonin 9.53 H TSH 1.18 Free T4 1.31 Ur Collection Type Clean Catch Urine Color Yellow Urine Clarity Turbid A Urine pH 6.0 Ur Specific [place] 1.023 Urine Protein 2+ A Urine Glucose (UA) Negative Urine Ketones Negative Urine Blood 3+ A Urine Nitrite Negative Urine Bilirubin Negative Urine Urobilinogen (Auto) Negative Ur Leukocyte Esterase Positive Urine RBC 106 H Urine WBC 863 H Ur Squamous Epith Cells 0 Urine Bacteria Rare Hyaline Casts < 1 Ur Culture Indicated? Yes RSV Rapid Negative Blood Type Antibody Screen Crossmatch Blood Bank Wristband ID 01/22/25 01/22/25 01/22/25 03:56 05:27 07:30 WBC 6.5 RBC 3.04 L Hgb 7.0 L Hct 23.1 L MCV 76 L MCH 23.0 L MCHC 30.3 L RDW Std Deviation 52.3 H Plt Count 177 Neut % (Auto) 81 H Lymph % (Auto) 5 L [place] % (Auto) 12 Eos % (Auto) 0 Baso % (Auto) 0 Neut # (Auto) 5.3 Lymph # (Auto) 0.3 L [place] # (Auto) 0.8 Eos # (Auto) 0.0 Baso # (Auto) 0.0 Immature Gran # (Auto) 0.03 H Absolute Nucleated RBC 0.00 Immature Gran % 1 H Nucleated RBC % 0 ESR Sodium 134 L Potassium 3.4 Chloride 100 Carbon Dioxide 25.1 Anion Gap 9 BUN 12 Creatinine 1.2 Estim Creat Clear Calc 42.0 L eGFR 49 L BUN/Creatinine Ratio 10 L Glucose 134 H Calculated Osmolality 269 L Lactic Acid 0.7 Calcium 8.1 L Corrected Calcium 8.8 Magnesium 2.5 Iron 28 L TIBC 266 Iron Saturation 10 L Unsat Iron Binding 238 Total Bilirubin 0.3 Direct Bilirubin AST 50 H ALT 14 Alkaline Phosphatase 68 Troponin I 0.382 H* C-Reactive Prot, Quant B-Natriuretic Peptide Total Protein 5.1 L Albumin 3.1 L D Globulin 2.0 L Albumin/Globulin Ratio 1.6 Lipase Procalcitonin TSH Free T4 Ur Collection Type Urine Color Urine Clarity Urine pH Ur Specific [place] Urine Protein Urine Glucose (UA) Urine Ketones Urine Blood Urine Nitrite Urine Bilirubin Urine Urobilinogen (Auto) Ur Leukocyte Esterase Urine RBC Urine WBC Ur Squamous Epith Cells Urine Bacteria Hyaline Casts Ur Culture Indicated? RSV Rapid Blood Type O Positive Antibody Screen NEGATIVE Crossmatch See Detail Blood Bank Wristband ID Yes 01/22/25 11:10 WBC RBC Hgb Hct MCV MCH MCHC RDW Std Deviation Plt Count Neut % (Auto) Lymph % (Auto) [place] % (Auto) Eos % (Auto) Baso % (Auto) Neut # (Auto) Lymph # (Auto) [place] # (Auto) Eos # (Auto) Baso # (Auto) Immature Gran # (Auto) Absolute Nucleated RBC Immature Gran % Nucleated RBC % ESR Sodium Potassium Chloride Carbon Dioxide Anion Gap BUN Creatinine Estim Creat Clear Calc eGFR BUN/Creatinine Ratio Glucose Calculated Osmolality Lactic Acid Calcium Corrected Calcium Magnesium Iron TIBC Iron Saturation Unsat Iron Binding Total Bilirubin Direct Bilirubin AST ALT Alkaline Phosphatase Troponin I 0.349 H* C-Reactive Prot, Quant B-Natriuretic Peptide Total Protein Albumin Globulin Albumin/Globulin Ratio Lipase Procalcitonin TSH Free T4 Ur Collection Type Urine Color Urine Clarity Urine pH Ur Specific [place] Urine Protein Urine Glucose (UA) Urine Ketones Urine Blood Urine Nitrite Urine Bilirubin Urine Urobilinogen (Auto) Ur Leukocyte Esterase Urine RBC Urine WBC Ur Squamous Epith Cells Urine Bacteria Hyaline Casts Ur Culture Indicated? RSV Rapid Blood Type Antibody Screen Crossmatch Blood Bank Wristband ID Quality Measures Quality Measures sepsis Current suspected stage: sepsis Possible source: genitourinary Blood cultures ordered: yes Antibiotic ordered: Yes Advance care planning discussed with:: patient Assessment & Plan Assessment Current Active Medications: Generic Name Dose Route Start Last Admin Trade Name Freq PRN Reason Stop Dose Admin Acetaminophen 650 mg 01/22/25 04:50 Acetaminophen 325 Mg Tablet PO 02/21/25 04:49 Q6H PRN Fever >100.4 or pain 1-3 Hydrocodone Bitart/Acetaminophen 1 tab 01/22/25 04:50 01/22/25 11:31 Hydrocodone/Apap 5/325 Tablet PO 01/27/25 04:49 1 tab Q4HR PRN Administration PAIN SCALE 4-10(Mod-Sev Docusate Sodium 100 mg 01/22/25 04:50 Docusate Sod 100 Mg Capsule PO 02/21/25 04:49 QDAY PRN CONSTIPATION Protocol Sodium Chloride 1,000 mls @ 75 mls/hr 01/22/25 05:00 01/22/25 06:09 Ns IV 01/23/25 07:39 75 mls/hr .[id number] [place] Administration Ceftriaxone Sodium 2 gm/ 50 mls @ 100 mls/hr 01/22/25 21:00 Sodium Chloride IV 01/29/25 20:59 QDAY@2100 [place] Ondansetron HCl 4 mg 01/22/25 04:50 Ondansetron Inj 2 Mg/Ml Inj 2 Ml IVP 02/21/25 04:49 Q6H PRN NAUSEA OR VOMITING Protocol Pantoprazole Sodium 40 mg 01/22/25 09:00 01/22/25 09:04 Pantoprazole 40 Mg Tablet PO 02/21/25 08:59 40 mg QDAY [place] Administration Sennosides 1 tab 01/22/25 04:50 Senna Tablet PO 02/21/25 04:49 QDAY PRN constipation Protocol Plan 70 y/o F with PMHx significant for hypertension, GERD presents to ED with chief complaint of weakness and confusion per family, admitted for sepsis secondary to UTI. #Sepsis secondary to #UTI #C/f pyelonephritis Patient presented with chief complaint of weakness and confusion per family. Exam. She was A&O x 4, reportedly experienced weakness requiring assistance from family at home. Patient also notes dysuria for past week. Denies fevers, chills, chest pain, shortness of breath. On presentation to ED patient had fever 104.6, resolved with 1 g IV Tylenol. Urinalysis shows 106 RBCs, 863 WBCs, rare bacteria. Blood and urine cultures drawn. Patient received 2 L bolus normal saline in the ED. Lactate 3.7 down trended to 0.7. Pro-Braulio 9.53. Sofa score 2. - Ceftriaxone 2 g IV daily (started 01/21) - IVF: Normal saline at 75 mL/h x 2 L - Blood and urine cultures pending, follow-up - PT referral #NSTEMI type II Patient has elevated troponin 0.278 up trended to 0.342. Patient denies chest pain, shortness of breath. EKG benign. Most likely demand ischemia in setting of sepsis. - Trend troponin - resolved (0.342, 0.382, 0.349) - Telemonitoring #Symptomatic anemia #Microcytic anemia On admission Hgb 8.4, dropped to 7 after 2L of ivf. Last Hgb prior to admission on 06/2017 was normal. Denies any bleeding, hematemesis/melena/hematochezia or hemoptysis Hematuria noted on UA, possibly in setting of UTI. less likely to be due to dilution because other lab values remained constant. Improved with 1 unit pRBCs: 8.7HgB. F/U iron panel. Ferritin Likely elevated. #CELESTE versus CKD Patient presenting with BUN 10, creatinine 1.2, EGFR 49. Baseline creatinine 0.9 on previous labs, however were several years out of date. Possible CELESTE secondary to sepsis, patient was dehydrated on presentation. - IVF as above - Monitor daily labs - Avoid nephrotoxins - Renally dose as needed - Hold MARIAH inhibitors #HTN Patient history as stated. Blood pressure low to normal in ED. Med rec's pending. - Consider resuming home meds when appropriate DVT prophylaxis: Heparin GI prophylaxis: Protonix Diet: Low-sodium Lines: Peripheral IV, Barnes cath Code status: Full code Plan of care discussed with attending Dr. Robbi Spears MD PGY?2 Attending Provider Attestation/Addendum I have examined the patient, reviewed labs and imaging findings, discussed the case with the resident(s), and reviewed entered orders. I agree with the plan of care as outlined in this note, with these additional summaries/recommendations: Patient seen at bedside. She was admitted overnight for sepsis secondary to pyelonephritis. Urine and blood cultures taken, follow-up results when available. Continue Tylenol as needed for fever. Continue IV antibiotics. CT imaging revealed left perinephric fat stranding. Patient also noted to have elevated troponin on admission most likely secondary to demand ischemia in the setting of sepsis/pyelonephritis. Continue to monitor and as needed EKG. Renal function stable, avoid nephrotoxic agents. Please see residents note for additional details and management. Dr. Abdi MD
--- NOTE | 2025-01-22 14:57 | PC.SS ---
Rounding note: cultures pending, CONCRETE VAULT MAKER made doctors aware that patient would like [facility] placement, PT recommended short term.
--- NOTE | 2025-01-22 14:58 | PC.SS ---
Addendum entered by FRANKY Alejo 01/22/25 16:16: DIRECTOR OF PARKS AND RECREATION waiting for PT to submit for authorization Original Note: DIRECTOR OF PARKS AND RECREATION spoke to patient at bedside. Patient was agreeable to [facility]. DIRECTOR OF PARKS AND RECREATION will submit SNF referral.
--- NOTE | 2025-01-22 16:20 | PC.SS ---
HAND WASHER submitted SNF referral, HAND WASHER waiting on PT to submit for authorization.
[2025-01-22 17:15] LABS: Hematocrit 28.3 % (36.0-46.0)
[2025-01-22 17:59] LABS: Hemoglobin 8.7 g/dL (12.0-16.0)
[2025-01-22] MEDS: cefTRIAXone 2 GM in SODIUM CHLORIDE 0.9% (Popper) 50 ML IV (21:30)
[2025-01-23] VITALS (9 sets, daily range): BP systolic 108–149; BP diastolic 57–83; PULSE 79–104; RESP 18–20; TEMP 36.6–37.2; O2SAT 93–99
[2025-01-23 06:29] LABS: Basophils # (Auto) 0.0 Thou/mm3 (0.0-0.2); Basophils % (Auto) 0 % (0-2.5); Eosinophils # (Auto) 0.0 Thou/mm3 (0.0-0.5); Eosinophils % (Auto) 1 % (0-10); Hematocrit 28.8 % (36.0-46.0); Hemoglobin 8.9 g/dL (12.0-16.0); Immature Granulocytes Auto 0.01 Thou/mm3 (0.00-0.00); Lymphocytes # (Auto) 0.2 Thou/mm3 (1.0-4.8); Lymphocytes % (Auto) 5 % (10-50); Mean Corpuscular HGB Conc 30.9 g/dl (31.0-37.0); Mean Corpuscular Hemoglobin 24.4 pg (25.0-35.0); Mean Corpuscular Volume 79 fL (80-100); Monocytes # (Auto) 0.4 Thou/mm3 (0.0-0.8); Monocytes % (Auto) 11 % (0-12); Neutrophils # (Auto) 2.9 Thou/mm3 (1.8-7.7); Neutrophils % (Auto) 83 % (37-80); Nucleated Red Blood Cell # 0.00 Thou/mm3 (0.00-0.00); Nucleated Red Blood Cell % 0 /100 WBC (0); Platelet Count 170 Thou/mm3 (140-440); RDW Standard Deviation 57.0 fL (36.4-46.3); Red Blood Count 3.65 Miln/mm3 (4.00-5.20); White Blood Count 3.5 Thou/mm3 (3.6-11.0)
[2025-01-23 06:52] LABS: Ferritin 31 ng/mL (7.3-270.7)
[2025-01-23 06:57] LABS: Alanine Aminotransferase 17 U/L (10-49); Albumin, Serum 3.2 gm/dL (3.4-4.8); Albumin/Globulin Ratio 1.5 (1.2-2.2); Alkaline Phosphatase 70 U/L (46-116); Anion Gap 10 (7-16); Aspartate Amino Transferase 39 U/L (0-34); BUN/Creatinine Ratio 9 Ratio (12-20); Bilirubin,Total 0.2 mg/dL (0.3-1.2); Blood Urea Nitrogen 10 mg/dL (9-23); Calcium 8.1 mg/dL (8.3-10.6); Calcium (Corrected) 8.7 mg/dL (8.5-10.1); Carbon Dioxide 23.8 mMol/L (20.0-31.0); Chloride 102 mMol/L (98-107); Creatinine (Component) 1.1 mg/dL (0.6-1.3); Estimated Creatinine Clearance 49.4 mL/min (>60); Globulin 2.1 gm/dL (2.3-3.5); Glucose 101 mg/dL (74-106); Magnesium 1.7 mg/dL (1.6-2.6); Osmolality,Calculated 270 (275-295); Phosphorous 2.8 mg/dL (2.4-5.1); Potassium 3.3 mMol/L (3.4-5.1); Sodium 136 mMol/L (136-145); Total Protein 5.3 gm/dL (5.7-8.2); eGFR 55 See Note
[2025-01-23] MEDS: HYDROcodone/APAP 5/325 TABLET 1 TAB PO ×2 (07:56→20:28)
[2025-01-23] MEDS: PANTOPRAZOLE 40 MG TABLET PO (07:57)
--- NOTE | 2025-01-23 08:39 | CHAP ---
Patient was visited by a Spiritual Care Volunteer 0n 01/22/2025 between 1000 and 1100 and received comfort, encouragement and/or prayer.
--- NOTE | 2025-01-23 10:24 | PC.SS ---
AND DRYING SUPERVISOR COOKING CASING confirmed [facility] placement with patient and completed PASSR. AND DRYING SUPERVISOR COOKING CASING submitted PASSR and PT note to [facility]. AND DRYING SUPERVISOR COOKING CASING notified [facility] that patient requested their facility via [facility].
[2025-01-23] MEDS: POTASSIUM CHLORIDE 10% 20 MEQ/15 ML UDC 40 MEQ PO (11:04)
--- NOTE | 2025-01-23 13:08 | PC.SS ---
Rounding: On IV ABX DC plan 24-48hrs to [facility]
--- NOTE | 2025-01-23 14:10 | ESPR_ITS ---
<Statement entered by Valerie Jarrell MD - 01/23/25 20:03> Patient was seen and examined at bedside. Reported significant improvement of her symptoms. Patient was surrounded by 4 family members and seems to be in good spirits. Her urine culture and blood culture grew GNR, pending final results. She reported that she still have some episodes of shortness of breath as she does not use her inhaler. Hospital. She reported that she is having some episodes of shortness of breath at home and she used the inhaler more than 3 times a week. For that reason we will start the patient on inhaler budesonide twice daily. In addition to albuterol/ipratropium inhaler. Patient most likely will need PICC line and IV antibiotics for 7 days. - Patient's plan and care discussed with my attending, Dr. Chet Jarrell MD Internal Medicine PGY-3 Documentation for date of: 01/23/25 Subjective Subjective Interval history: Patient examined bedside AOx4. Awaiitng blood cultures sensitivties GNRs. Patient reports SOB at home requiring 2x albuterol uses per day. denies dizziness or confusion and denies coughing up blood. Her hips continue bothering her and it makes her sad. Exam Vital Signs Temp Pulse Resp BP Pulse Ox O2 Del Method O2 Flow Rate 99.0 F 82 18 133/70 H 93 L Nasal Cannula 4 01/23/25 08:00 01/23/25 11:00 01/23/25 08:00 01/23/25 08:00 01/23/25 08:00 01/23/25 08:00 01/23/25 08:00 Narrative Exam Gen: Well-developed and well-nourished. HEENT: NCAT, PERRLA, EOMI, anicteric conjunctivae. Dry mucous membranes. Horizontal nystagmus. CVS: normal S1 and S2. RRR. No M/R/G. Resp: CTA B/L. No rhonchi, rales, crackles or wheezing. Abd: soft, non-tender, non-distended. MSK: Good ROM in BUE. No edema or rash. Bilateral lower extremity movement limited by pain. Neuro: CN II-XII grossly intact. Strength 5/5 in BUE & BLE. Alert and oriented x3. Psych: appropriate mood and affect. Uro: Unable to assess back for CVA tenderness due to limited ability due to hip pain Objective Labs 01/24/25 04:52 01/24/25 04:52 Labs: Laboratory Results - last 24 hr 01/22/25 01/22/25 01/23/25 07:30 17:02 05:10 WBC 3.5 L D RBC 3.65 L Hgb 8.7 L D 8.9 L Hct 28.3 L 28.8 L MCV 79 L MCH 24.4 L MCHC 30.9 L RDW Std Deviation 57.0 H Plt Count 170 Neut % (Auto) 83 H Lymph % (Auto) 5 L [place] % (Auto) 11 Eos % (Auto) 1 Baso % (Auto) 0 Neut # (Auto) 2.9 Lymph # (Auto) 0.2 L [place] # (Auto) 0.4 Eos # (Auto) 0.0 Baso # (Auto) 0.0 Immature Gran # (Auto) 0.01 H Absolute Nucleated RBC 0.00 Immature Gran % 0 Nucleated RBC % 0 Sodium 136 Potassium 3.3 L Chloride 102 Carbon Dioxide 23.8 Anion Gap 10 BUN 10 Creatinine 1.1 Estim Creat Clear Calc 49.4 L eGFR 55 L BUN/Creatinine Ratio 9 L Glucose 101 Calculated Osmolality 270 L Calcium 8.1 L Corrected Calcium 8.7 Phosphorus 2.8 Magnesium 1.7 Ferritin 31 Total Bilirubin 0.2 L AST 39 H ALT 17 Alkaline Phosphatase 70 Total Protein 5.3 L Albumin 3.2 L Globulin 2.1 L Albumin/Globulin Ratio 1.5 Crossmatch See Detail Quality Measures Quality Measures sepsis Current suspected stage: sepsis Possible source: genitourinary Blood cultures ordered: yes Antibiotic ordered: Yes Advance care planning discussed with:: patient Assessment & Plan Assessment Current Active Medications: Generic Name Dose Route Start Last Admin Trade Name Freq PRN Reason Stop Dose Admin Acetaminophen 650 mg 01/22/25 04:50 Acetaminophen 325 Mg Tablet PO 02/21/25 04:49 Q6H PRN Fever >100.4 or pain 1-3 Hydrocodone Bitart/Acetaminophen 1 tab 01/22/25 04:50 01/23/25 07:56 Hydrocodone/Apap 5/325 Tablet PO 01/27/25 04:49 1 tab Q4HR PRN Administration PAIN SCALE 4-10(Mod-Sev Albuterol/Ipratropium 3 ml 01/23/25 11:43 Albuterol/Ipratropium (Duoneb) Rt Ximena 3 Ml Nebu INH 02/22/25 11:42 Q2HR PRN SHORTNESS OF BREATH OR WHEEZE Budesonide 0.25 mg 01/23/25 11:45 Budesonide Rt 0.25 Mg/2 Ml Nebu INH 02/22/25 11:44 BIDRT KAROLINA Docusate Sodium 100 mg 01/22/25 04:50 Docusate Sod 100 Mg Capsule PO 02/21/25 04:49 QDAY PRN CONSTIPATION Protocol Ceftriaxone Sodium 2 gm/ 50 mls @ 100 mls/hr 01/22/25 21:00 01/22/25 21:30 Sodium Chloride IV 01/29/25 20:59 100 mls/hr QDAY@2100 KAROLINA Administration Ondansetron HCl 4 mg 01/22/25 04:50 Ondansetron Inj 2 Mg/Ml Inj 2 Ml IVP 02/21/25 04:49 Q6H PRN NAUSEA OR VOMITING Protocol Pantoprazole Sodium 40 mg 01/22/25 09:00 01/23/25 07:57 Pantoprazole 40 Mg Tablet PO 02/21/25 08:59 40 mg QDAY KAROLINA Administration Sennosides 1 tab 01/22/25 04:50 Senna Tablet PO 02/21/25 04:49 QDAY PRN constipation Protocol Plan 70 y/o F with PMHx significant for hypertension, GERD presents to ED with chief complaint of weakness and confusion per family, admitted for sepsis secondary to UTI. Improved mentation however notifies team of chronic asthma. #Sepsis secondary to #UTI #C/f pyelonephritis Patient presented with chief complaint of weakness and confusion per family. Exam. She was A&O x 4, reportedly experienced weakness requiring assistance from family at home. Patient also notes dysuria for past week. Denies fevers, chills, chest pain, shortness of breath. On presentation to ED patient had fever 104.6, resolved with 1 g IV Tylenol. Urinalysis shows 106 RBCs, 863 WBCs, rare bacteria. Blood and urine cultures drawn. Patient received 2 L bolus normal saline in the ED. Lactate 3.7 down trended to 0.7. Pro-Braulio 9.53. Sofa score 2. - Ceftriaxone 2 g IV daily (started 01/21) - IVF: Normal saline at 75 mL/h x 2 L - Blood and urine cultures pending, GNR, FUP sensitivities. - PT referral #Asthma Patient reports using albuterol inhaler 2x/day at home, and feels SOB here occaisonally with deep inspiration. Denies chest pain, orthopnea. Plan: -Duoneb PRN -Budesonide RT 0.25 mg #NSTEMI type II Patient has elevated troponin 0.278 up trended to 0.342. Patient denies chest pain, shortness of breath. EKG benign. Most likely demand ischemia in setting of sepsis. - Trend troponin - resolved (0.342, 0.382, 0.349) - Telemonitoring #Symptomatic anemia #Microcytic anemia #Anemia of chronic disease On admission Hgb 8.4, dropped to 7 after 2L of ivf. Last Hgb prior to admission on 06/2017 was normal. Denies any bleeding, hematemesis/melena/hematochezia or hemoptysis. Ferritin: normal value indicating anemia of chronic diseae. Hematuria noted on UA, possibly in setting of UTI. less likely to be due to dilution because other lab values remained constant. Improved with 1 unit pRBCs: 8.7HgB. F/U iron panel. Ferritin: Normal #CELESTE versus CKD Patient presenting with BUN 10, creatinine 1.2, EGFR 49. Baseline creatinine 0.9 on previous labs, however were several years out of date. Possible CELESTE secondary to sepsis, patient was dehydrated on presentation. - IVF as above - Monitor daily labs - Avoid nephrotoxins - Renally dose as needed - Hold MARIAH inhibitors #HTN Patient history as stated. Blood pressure low to normal in ED. Med rec's pending. - Consider resuming home meds when appropriate DVT prophylaxis: Heparin GI prophylaxis: Protonix Diet: Low-sodium Lines: Peripheral IV, Barnes cath Code status: Full code Plan of care discussed with attending Dr. Chet August MD PGY?1 Attending Provider Attestation/Addendum I have discussed and was present for the essential components of the history, physical examination, diagnosis, and treatment plan with the resident. I agree with the patient's care as documented by the resident and amended herein by me. Que Rosenberg, DO. Although this document has been carefully reviewed, there may still be some phonetic and other typographical errors. These errors are purely grammatical due to imperfections in the software program and should not be construed in any way to compromise the substance of the patient's medical care during this visit.
[2025-01-23] MEDS: BUDESONIDE RT 0.25 MG/2 ML NEBU INH (19:27)
[2025-01-23] MEDS: cefTRIAXone 2 GM in SODIUM CHLORIDE 0.9% (Popper) 50 ML IV (20:28)
[2025-01-23] MEDS: BENZONATATE 100 MG CAPSULE PO (23:51)
[2025-01-24] VITALS (8 sets, daily range): BP systolic 139–149; BP diastolic 71–93; PULSE 67–92; RESP 14–19; TEMP 36.4–36.8; O2SAT 92–100
[2025-01-24] MEDS: HYDROcodone/APAP 5/325 TABLET 1 TAB PO (03:53)
[2025-01-24 06:06] LABS: Basophils # (Auto) 0.0 Thou/mm3 (0.0-0.2); Basophils % (Auto) 1 % (0-2.5); Eosinophils # (Auto) 0.0 Thou/mm3 (0.0-0.5); Eosinophils % (Auto) 1 % (0-10); Hematocrit 28.3 % (36.0-46.0); Immature Granulocytes Auto 0.01 Thou/mm3 (0.00-0.00); Lymphocytes # (Auto) 0.5 Thou/mm3 (1.0-4.8); Lymphocytes % (Auto) 18 % (10-50); Mean Corpuscular HGB Conc 30.7 g/dl (31.0-37.0); Mean Corpuscular Hemoglobin 24.3 pg (25.0-35.0); Mean Corpuscular Volume 79 fL (80-100); Monocytes # (Auto) 0.5 Thou/mm3 (0.0-0.8); Monocytes % (Auto) 18 % (0-12); Neutrophils # (Auto) 1.9 Thou/mm3 (1.8-7.7); Neutrophils % (Auto) 62 % (37-80); Nucleated Red Blood Cell # 0.00 Thou/mm3 (0.00-0.00); Nucleated Red Blood Cell % 0 /100 WBC (0); Platelet Count 184 Thou/mm3 (140-440); RDW Standard Deviation 57.0 fL (36.4-46.3); Red Blood Count 3.58 Miln/mm3 (4.00-5.20); White Blood Count 3.0 Thou/mm3 (3.6-11.0)
[2025-01-24 06:08] LABS: Hemoglobin 8.7 g/dL (12.0-16.0)
[2025-01-24 06:35] LABS: Alanine Aminotransferase 17 U/L (10-49); Albumin, Serum 3.1 gm/dL (3.4-4.8); Albumin/Globulin Ratio 1.5 (1.2-2.2); Alkaline Phosphatase 64 U/L (46-116); Anion Gap 11 (7-16); Aspartate Amino Transferase 28 U/L (0-34); BUN/Creatinine Ratio 10 Ratio (12-20); Bilirubin,Total < 0.2 mg/dL (0.3-1.2); Blood Urea Nitrogen 9 mg/dL (9-23); Calcium 8.5 mg/dL (8.3-10.6); Calcium (Corrected) 9.2 mg/dL (8.5-10.1); Carbon Dioxide 24.3 mMol/L (20.0-31.0); Chloride 105 mMol/L (98-107); Creatinine (Component) 0.9 mg/dL (0.6-1.3); Estimated Creatinine Clearance 60.3 mL/min (>60); Globulin 2.1 gm/dL (2.3-3.5); Glucose 102 mg/dL (74-106); Magnesium 1.9 mg/dL (1.6-2.6); Osmolality,Calculated 278 (275-295); Phosphorous 3.0 mg/dL (2.4-5.1); Potassium 3.7 mMol/L (3.4-5.1); Sodium 140 mMol/L (136-145); Total Protein 5.2 gm/dL (5.7-8.2); eGFR > 60 See Note
[2025-01-24] MEDS: BUDESONIDE RT 0.25 MG/2 ML NEBU INH (07:25)
--- NOTE | 2025-01-24 08:17 | CHAP ---
Patient was visited by a Spiritual Care Volunteer on 01/23/2025 between 0900 and 1200 and received comfort, encouragement and/or prayer.
[2025-01-24] MEDS: PANTOPRAZOLE 40 MG TABLET PO (09:10)
--- NOTE | 2025-01-24 09:17 | PC.RT ---
Rounding: Poss DC to [facility] today pending insurance auth
--- NOTE | 2025-01-24 12:28 | PC.SS ---
SS met with pt to discuss transport for SNF today, pt is unable to transfer to a private vehicle, pt does not have transport coverage through [facility]. Pt can not pay oop for transport, [facility] with [facility] to be utilized. SS called [facility] and spoke to rep she will call SS back if they can accommodate pt today going to .
--- NOTE | 2025-01-24 12:45 | PC.SS ---
SS spoke to Dania at [facility] latest they can do is 1530, RN Lamar and pt made aware
--- NOTE | 2025-01-24 13:48 | ESDS_ITS ---
Planned Discharge Date 01/24/25 DS: Providers Provider Date of admission: 01/22/25 04:50 Primary care physician: Physician No Primary/Family Admitting Provider: Karuna Culp MD Attending Provider on Admission: Keny Patton MD Consults: 01/22/25 04:50 Referral Physical Therapy Routine Comment: Physician Instructions: 01/22/25 13:14 Referral [place] Routine Comment: Attending Provider on DC: Hair Rosenberg DO Discharging Provider: Hair Rosenberg DO DS: Diagnosis Problem List Completed Was Problem List Reviewed/Reconciled?: Yes Hospital Course Hospital Course Hospital course: 70 y/o F with PMHx significant for hypertension, GERD presents to ED with chief complaint of weakness and confusion per family, admitted for sepsis secondary to UTI. In the ED patient had weakness and moderate confusion, noted to have fever 104.6, tachycardia. Received 2 L bolus normal saline, 1 g Tylenol IV, aspirin 324, Toprol tartrate 12.5, and Rocephin. labs showed a elevated trops, possible CELESTE, with UA 106 RBCs, 863 WBCs, rare bacteria. EKG, CXR and head CT were unremarkable. Blood and urine cx came back positive for E.coli, rocephin continued renal US showed perinephric fat stranding. Her asthma was managed with budesonide and duonebs, and given tessalon for a cough. Troponins resolved. She became anemic after IV fluids so pRBCs were given which resolved the anemia most likely 2/2 inflammatory disease. her CELESTE resolved with fluids, and once culture sensitivities returned and patient returned to baseline mentation she was safe to discharge on levofloxacin. Discharge Instructions: Follow-up with your PCP within 1 week Take your medicines as prescribed Finish up your antibiotic, Levofloxacin, take as prescribed I am stopping your iron as you have infection in your blood You will need to repeat a CBC outpatient as your white blood cell count was low. Do this in one week Return to ED if your symptoms worsen or return #Sepsis secondary to #UTI #C/f pyelonephritis #Asthma #NSTEMI type II #Symptomatic anemia #Microcytic anemia #Anemia of chronic disease #CELESTE #HTN Patient's plan and care discussed with my attending, Dr. Rosenberg, and supervising residents Valerie Jarrell MD, and MD Kunal Gregory MD Internal Medicine PGY-1 Time Spent with Patient Time attestation: Total time spent providing and/or coordinating discharge services: Time spent: Greater than 30 minutes Exam Vital Signs Temp Pulse Resp BP Pulse Ox O2 Del Method O2 Flow Rate 97.9 F 82 18 148/76 H 92 L Nasal Cannula 1 01/24/25 11:44 01/24/25 11:52 01/24/25 11:44 01/24/25 11:44 01/24/25 11:44 01/24/25 11:44 01/24/25 11:44 Narrative Exam Gen: Well-developed and well-nourished. HEENT: NCAT, PERRLA, EOMI, anicteric conjunctivae. Wet mucous membranes. Horizontal nystagmus. CVS: normal S1 and S2. RRR. No M/R/G. Resp: CTA B/L. No rhonchi, rales, crackles or wheezing. Abd: soft, non-tender, non-distended. MSK: Good ROM in BUE. No edema or rash. Bilateral lower extremity movement limited by pain. Neuro: CN II-XII grossly intact. Strength 5/5 in BUE & BLE. Alert and oriented x3. Psych: appropriate mood and affect. Uro: Unable to assess back for CVA tenderness due to limited ability due to hip pain Discharge Plan Plan Patient Disposition: Xfer Skilled Nsg Fac (SNF) Patient condition on transfer: Stable Care Plan Goals: Discharge instructions Follow-up with your PCP within 1 week Take your medicines as prescribed Finish up your antibiotic, Levofloxacin, take as prescribed I am stopping your iron as you have infection in your blood You will need to repeat a CBC outpatient as your white blood cell count was low. Do this in one week Return to ED if your symptoms worsen or return Prescriptions/Referrals Prescriptions/Med Rec: New levofloxacin 750 mg tablet 750 mg PO QDAY 4 Days Qty: 4 0RF Rx Instructions: Take one tablet by mouth every day benzonatate 100 mg capsule 100 mg PO BID PRN (Reason: cough) 14 Days Qty: 14 0RF budesonide 0.25 mg/2 mL Suspension For Nebulization 0.25 mg INH BIDRT 7 Days Qty: 60 0RF Continued lisinopril 10 MG tablet 20 mg PO QDAY Qty: 0 hydroxyzine HCl 25 MG tablet 25 mg PO Q8HR PRN (Reason: ANXIETY) Qty: 0 albuterol sulfate [ProAir HFA] 8.5 GM HFA aerosol inhaler 2 puff Inhalation Q6HR PRN (Reason: cough) Qty: 1 0RF Rx Instructions: Please dispense spacer omeprazole 40 MG capsule,delayed release(DR/EC) 40 mg PO QDAY Qty: 0 cholecalciferol (vitamin D3) 50 mcg (2,000 unit) tablet 50 mcg PO QDAY Patient Comments: take 1 tablet by mouth once daily Discontinued ferrous sulfate 325 ( 65 )MG tablet 325 mg PO TID Qty: 0 albuterol sulfate [Proventil HFA] 6.7 GM HFA aerosol inhaler 2 puff Inhalation Q6HR PRN (Reason: SHORTNESS OF BREATH) Qty: 0 chlorthalidone 25 MG tablet 25 mg PO QDAY Qty: 0 Referrals: No Primary/Family,Physician [Primary Care Provider] - Patient/Caregiver Discharge Instructions Discharge Activity: activity as tolerated Education Materials: ED Bacteremia, Suspected (Adult), ED CYSTITIS Female Adult Print Language: [place]an Stand Alone Forms: [facility] Award Info., Patient Portal Info Letter Discharge Order Discharge Orders: Discharge (Routine); Ordered 01/24/25 Ordered By: Radha Acevedo Quality Discharge Quality Measures VTE prophylaxis Attestestation MD Attestation I have discussed and was present for the essential components of the discharge history, physical examination, diagnosis, and discharge treatment plan with the resident. I agree with the patient's discharge care as documented by the resident and amended herein by me. Que Rosenberg DO. The patient understood all discharge instructions, all questions were answered satisfactorily. The patient was instructed to return to the Emergency Department is symptoms worsened or persisted. Although this document has been carefully reviewed, there may still be some phonetic and other typographical errors. These errors are purely grammatical due to imperfections in the software program and should not be construed in any way to compromise the substance of the patient's medical care during this visit.
[2025-01-24] MEDS: ALBUTEROL/IPRATROPIUM (Duoneb) RT SOL 3 ML NEBU INH (13:54)
--- NOTE | 2025-01-24 14:08 | PC.NURSE ---
Report given to Bella at [facility]. Patient will be discharging at 1500.
--- NOTE | 2025-01-24 14:21 | PC.NURSE ---
Barnes removed, see flow sheet for time. Bladder scan less than 30ml. Dr. Acevedo aware. Patient will be discharging at 1500.
== END 2025-01-24 15:17 | disposition skilled nursing facility (03) | DRG 871 ==
LOC: SERX 01-22 04:36 → SERHOLD 01-22 05:32 → S3NX 01-22 06:04
PROVIDERS: Admitting Provider Student in an Organized Health Care Education/Training Program; Emergency Provider Emergency Medicine; Visit Provider Student in an Organized Health Care Education/Training Program
DX: A41.51 Sepsis due to Escherichia coli [E. coli] (principal); I21.A1 Myocardial infarction type 2; J18.9 Pneumonia, unspecified organism; N39.0 Urinary tract infection, site not specified; I24.89 Other forms of acute ischemic heart disease; N17.9 Acute kidney failure, unspecified; N12 Tubulo-interstitial nephritis, not specified as acute or chronic; R65.20 Severe sepsis without septic shock; I10 Essential (primary) hypertension; E83.42 Hypomagnesemia; J45.909 Unspecified asthma, uncomplicated; D63.8 Anemia in other chronic diseases classified elsewhere; E86.0 Dehydration; K21.9 Gastro-esophageal reflux disease without esophagitis; Z96.642 Presence of left artificial hip joint; Z90.49 Acquired absence of other specified parts of digestive tract; D50.9 Iron deficiency anemia, unspecified
CPT/HCPCS: 36415; 70450; 71045; 71250; 76770; 80053; 81001; 82248; 82728; 83540; 83550; 83605; 83690; 83735; 83880; 84100; 84145; 84439; 84443; 84484; 85014; 85018; 85025; 85652; 86140; 86850; 86900; 86901; 86923; 87040; 87077; 87086; 87186; 87400; 87634; 87811; 93005; 93225; 94640; 94664; 96361; 96365; 96366; 96375; 97162; 99284; A9270; J0131; J0696; J1885; J2270; J3475; J7030; J7050; P9016